=== PATIENT | male | born 1965 | race American Indian/Alaskan Native ===

== ENCOUNTER 2018-07-26 11:02 | Observation (INO) | payer BC ==
[2018-07-19 09:26] LABS: Basophils # (Auto) 0.1 K/mm3 (0.0-0.1); Basophils % (Auto) 1.1 % (0.0-1.8); Eosinophils # (Auto) 0.4 K/mm3 (0.0-0.4); Eosinophils % (Auto) 7.7 % (0.0-4.3); Hematocrit 38.6 % (35.5-45.6); Hemoglobin 13.3 gm/dl (11.8-15.2); Lymphocytes # (Auto) 1.8 K/mm3 (1.2-5.4); Lymphocytes % (Auto) 30.8 % (13.4-35.0); Mean Corpuscular HGB Conc 35 % (32-34); Mean Corpuscular Hemoglobin 30 pg (28-32); Mean Corpuscular Volume 87 fl (84-94); Monocytes # (Auto) 0.4 K/mm3 (0.0-0.8); Monocytes % (Auto) 6.6 % (0.0-7.3); Platelet Count 285 K/mm3 (140-440); Red Blood Count 4.42 M/mm3 (3.65-5.03); Red Cell Distribution Width 13.2 % (13.2-15.2)
[2018-07-19 09:41] LABS: INR 0.91 (0.87-1.13)
[2018-07-19 09:42] LABS: Alanine Aminotransferase 28 units/L (7-56); Albumin 4.5 g/dL (3.9-5); BUN/Creatinine Ratio 18; Blood Urea Nitrogen 14 mg/dL (9-20); Calcium 9.4 mg/dL (8.4-10.2); Hemolysis Index 6; Partial Thromboplastin Time 26.9 Sec. (24.2-36.6)
--- NOTE | 2018-07-19 14:04 | Anesthesia Consultation ---
Anesthesia Consult and Med Hx Date of service: 07/19/18 - Airway Anesthetic Teeth Evaluation: Good ROM Head & Neck: Adequate Mental/Hyoid Distance: Adequate Mallampati Class: Class II Intubation Access Assessment: Probably Good - Pulmonary Exam CTA: Yes - Cardiac Exam Cardiac Exam: RRR - Pre-Operative Health Status ASA Pre-Surgery Classification: ASA3 Proposed Anesthetic Plan: General (Ga with LMA ok, Pt has PONV, GERD will give pepcid morning of procedure) - Pulmonary Hx Smoking: No Hx Asthma: Yes (INHALER PRN) Hx Sleep Apnea: Yes (DX SLEEP APNEA , NO CPAP USE) - Cardiovascular System Hx Hypertension: Yes (X 5 YRS)
[~2018-07-26 11:02] MED LIST: GARAMYCIN/NS 80 MG/100 ML 100 ML IV SCH; LACTATED RINGERS 1,000 ML IV SCH; PEPCID IV NR; VANCOMYCIN/NS 1 GM/250 ML 1 GM/250 ML BAG IV SCH; VERSED IV NR
[2018-07-26] MEDS ORDERED: DIPRIVAN 10 MG/ML IV ONE (11:55)
[2018-07-26] MEDS ORDERED: XYLOCAINE MPF 2% ONE (11:55)
[2018-07-26] MEDS ORDERED: DILAUDID ONE ×3 (11:57→17:30)
[2018-07-26] MEDS ORDERED: MARCAINE 0.25% INFILTRATI ONE (12:49)
[2018-07-26] MEDS ORDERED: NEOSPORIN GU IR ONE ×2 (12:50→13:20)
[2018-07-26] MEDS ORDERED: NACL 0.9% IR ONE (13:20)
[2018-07-26] MEDS ORDERED: DECADRON ONE (13:38)
[2018-07-26] MEDS ORDERED: ZOFRAN ONE ×2 (14:49→15:28)
[2018-07-26] MEDS ORDERED: NARCAN 0.4 MG/1 ML IV PRN (14:55)
[2018-07-26] MEDS ORDERED: ZOFRAN IV PRN ×2 (14:55→16:34)
[2018-07-26] MEDS ORDERED: MORPHINE IV PRN (14:55)
[2018-07-26] MEDS ORDERED: NORCO 5/325 PO PRN (14:55)
--- NOTE | 2018-07-26 14:55 | Short Stay Summary ---
Short Stay Documentation Date of service: 07/26/18 - History H&P: obtained from office - Allergies and Medications Current Medications: Allergies hydrocodone Adverse Reaction (Verified 07/26/18 11:58) HALLUCINATIONS Home Medications Medication Instructions Recorded Confirmed Last Taken Type ALBUTEROL Inhaler(NF) [VENTOLIN 1 puff IH PRN PRN 07/10/18 07/26/18 07/19/18 History Inhaler(NF)] amLODIPine [Norvasc] 5 mg PO DAILY 07/10/18 07/26/18 07/26/18 07:00 History Sulfamethoxazole/Trimethoprim 1 each PO BID 07/26/18 07/26/18 07/26/18 07:00 History [Bactrim DS TAB] Active Medications Famotidine (Pepcid) 20 mg IV PREOP NR Stop: 07/26/18 23:59 Last Admin: 07/26/18 12:34 Dose: 20 mg Lactated Ringer's (Lactated Ringers) 1,000 mls @ 100 mls/hr IV DIRECT RE Last Admin: 07/26/18 12:20 Dose: 100 mls/hr Gentamicin Sulfate/Sodium Chloride (Garamycin/Ns 80 Mg/100 Ml) 100 mls @ 200 mls/hr IV PREOP RE Vancomycin HCl (Vancomycin/Ns 1 Gm/250 Ml) 1 gm in 250 mls @ 166.667 mls/hr IV PREOP RE Last Admin: 07/26/18 12:36 Dose: 166.667 mls/hr Midazolam HCl (Versed) 2 mg IV PREOP NR Stop: 07/26/18 23:59 Last Admin: 07/26/18 12:41 Dose: 2 mg - Brief post op/procedure progress note Date of procedure: 07/26/18 Pre-op diagnosis: impotence Post-op diagnosis: other Procedure: ipp (21cm + 4cm RTE), intracorporal pharmacologic injection, scrotoplasty Anesthesia: GETA Surgeon: DANO DIMAS [facility] Program Director: WOODROW BURK Estimated blood loss: minimal Pathology: list (scrotal skin) Specimen disposition: to lab Condition: stable - Hospital course Hospital course: pt has bactrim & norco - Disposition Condition at discharge: Stable Disposition: DC-01 TO HOME OR SELFCARE Short Stay Discharge Plan Follow up with: DEIDRA ARCE MD [Primary Care Provider] - 7 Days
[2018-07-26] MEDS ORDERED: PROAIR IH PRN (14:58)
[2018-07-26] MEDS ORDERED: LACTATED RINGERS 1,000 ML IV SCH (15:00)
[2018-07-26] MEDS: DILAUDID IV PRN ×3 (15:30→20:38)
[2018-07-26] MEDS ORDERED: BENADRYL ONE (16:03)
[2018-07-26] MEDS ORDERED: LACTATED RINGERS 1,000 ML ONE (16:05)
--- NOTE | 2018-07-26 16:34 | Anesthesia Day of Surgery ---
Anesthesia Day of Surgery - Day of Surgery Patient Examined: Yes Patient H&P Reviewed: Yes Patient is NPO: Yes
--- NOTE | 2018-07-26 16:34 | Post Anesthesia Evaluation ---
- Post Anesthesia Evaluation Patient Participated: Yes Airway Patent: Yes Stable Respiratory Function: Yes Nausea/Vomiting: No Temp > 96.8F: Yes Pain Manageable: Yes Adequeate Hydration: Yes Anesthesia Complications: No
[2018-07-26] MEDS ORDERED: BENADRYL IV ONE (17:42)
--- NOTE | 2018-07-26 18:30 | Operative Report ---
PREOPERATIVE DIAGNOSIS: Erectile dysfunction. POSTOPERATIVE DIAGNOSES: Erectile dysfunction, redundant scrotal skin. 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 2.Intracorporal penile injection of pharmacologic agent. 3.Scrotoplasty. SURGEON: Braxton Chaudhari MD RECRUITER: Zelalem Rockwell. ANESTHESIA: General. ESTIMATED BLOOD LOSS: Minimal. FLUIDS: Crystalloid. COMPLICATIONS: No complications. INDICATIONS: This 53-year-old gentleman seen in my office for erectile dysfunction. Actually, he had a prostate biopsy in 2016 for PSA of [address] Joseph. He was found to have [place] 9 adenocarcinoma of the prostate. He underwent robotic prostatectomy at [place] (Dr. Gregory on 01/2017). His protocol at [facility] required 2 years of hormone therapy. 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 He finished in 12/2017. Continues to have some mild stress incontinence appeared to be controlled and refractory erectile dysfunction to medical management. Discussed options. He agreed to proceed with surgical intervention. DESCRIPTION OF PROCEDURE: The patient was taken to the operative suite, placed in a supine position. After adequate general anesthesia, prepped and draped in a sterile fashion. [place] catheter was placed on the operative field. Injection of 0.25% Marcaine was performed, total of 30 mL. No plaque or curvature could be appreciated. A transscrotal incision was made with the Bovie. Sharp dissection was taken out to the corporal bodies. Metal [place] retractor was used for exposure. 2-0 Vicryl stay sutures were placed into the corporal bodies. Corporotomies were performed bilaterally with the Bovie. Gentle dilatation was performed with 7-8 mm sounds; however, it was a bit snug at the proximal aspect and it was dilated then up to 12 mm with sounds. Measurements revealed a total of 25 cm bilaterally and therefore 21 cm CX device with 4 cm rear tip extenders were used to allow the best rigidity. 100 mL Conceal reservoir was placed in the retropubic space via the right external ring, 100 mL saline was placed with minimal back pressure. The device was placed in the corporal bodies with the aid of a Spencer needle. Corporotomies were closed with 2-0 Vicryl in a running fashion bilaterally. Insufflation performed with adequate erection. Measurement from the pubic symphysis to the tip of the penis was 15 cm before and after placement of the device. Throughout the procedure, copious irrigation was performed. Adequate hemostasis achieved. The pump was connected to the reservoir with the quick click connection system and cycling again revealed an excellent erection. [place] layer was then closed with 2-0 Vicryl in a running fashion. Pursestring suture was used to secure this pump in the dependent portion of the scrotum. Redundant scrotal skin and dog ears were trimmed, sent for routine pathologic evaluation. Skin was closed with 3-0 Vicryl in interrupted fashion. Collodion was placed, Xeroform gauze as well as a mummy wrap. He was extubated and taken to the recovery room in stable condition. JOB# [id number] KAYE/EMMETT
[2018-07-26] MEDS: ANCEF/NS 1 GM/50 ML 1 GM/50 ML BAG IV SCH ×2 (23:48)
[2018-07-27] MEDS: DILAUDID IV PRN (04:34)
--- NOTE | 2018-07-27 06:09 | Consultation ---
History of Present Illness - Reason for Consult Consult date: 07/26/18 Medical management Requesting physician: DANO DIMAS - History of Present Illness S/p IPP-post op doing well Past History Past Medical History: hypertension, other (Asthma) Past Surgical History: Other (IPP) Social history: no significant social history, lives with family, full code Family history: hypertension Medications and Allergies Allergies Allergy/AdvReac Type Severity Reaction Status Date / Time hydrocodone AdvReac HALLUCINATI Verified 07/26/18 11:58 ONS Home Medications Medication Instructions Recorded Confirmed Last Taken Type ALBUTEROL Inhaler(NF) [VENTOLIN 1 puff IH PRN PRN 07/10/18 07/26/18 07/19/18 History Inhaler(NF)] amLODIPine [Norvasc] 5 mg PO DAILY 07/10/18 07/26/18 07/26/18 07:00 History Sulfamethoxazole/Trimethoprim 1 each PO BID 07/26/18 07/26/18 07/26/18 07:00 History [Bactrim DS TAB] Active Meds: Active Medications Acetaminophen/Hydrocodone Bitart ([place] 5/325) 2 each PO Q6H PRN PRN Reason: Pain, Moderate (4-6) Albuterol (Proair) 1 puff IH PRN PRN PRN Reason: Shortness Of Breath Amlodipine Besylate (Norvasc) 5 mg PO DAILY RE Gentamicin Sulfate/Sodium Chloride (Garamycin/Ns 80 Mg/100 Ml) 100 mls @ 200 mls/hr IV PREOP RE Vancomycin HCl (Vancomycin/Ns 1 Gm/250 Ml) 1 gm in 250 mls @ 166.667 mls/hr IV PREOP RE Last Admin: 07/26/18 12:36 Dose: 166.667 mls/hr Lactated Ringer's (Lactated Ringers) 1,000 mls @ 125 mls/hr IV DIRECT RE Last Admin: 07/26/18 23:49 Dose: 125 mls/hr Morphine Sulfate (Morphine) 4 mg IV Q4H PRN PRN Reason: Pain , Severe (7-10) Naloxone HCl (Narcan 0.4 Mg/1 Ml) 0.1 mg IV Q2MIN PRN PRN Reason: Res Rate </= 8 or 02 SAT < 92% Ondansetron HCl (Zofran) 4 mg IV Q8H PRN PRN Reason: N/V unrelieved by Julien Last Admin: 07/26/18 15:27 Dose: 4 mg Ondansetron HCl (Zofran) 4 mg IV ONCE PRN PRN Reason: Nausea And Vomiting Review of Systems All systems: negative Exam - Constitutional Vitals: Temp Pulse Resp BP Pulse Ox 98.3 F 67 17 128/70 99 07/27/18 04:21 07/27/18 04:21 07/27/18 04:34 07/27/18 04:21 07/27/18 04:21 General appearance: Present: no acute distress, well-nourished - EENT Eyes: Present: PERRL ENT: hearing intact, clear oral mucosa - Neck Neck: Present: supple, normal ROM - Respiratory Respiratory effort: normal Respiratory: bilateral: CTA - Cardiovascular Heart rate: 80 Rhythm: regular Heart Sounds: Present: S1 & S2. Absent: rub, click - Extremities Extremities: no ischemia, pulses intact, pulses symmetrical, No edema Peripheral Pulses: within normal limits - Abdominal General gastrointestinal: Present: soft, non-tender, non-distended, normal bowel sounds Male genitourinary: Present: normal - Rectal Rectal Exam: deferred - Integumentary Integumentary: Present: clear, warm, dry - Musculoskeletal Musculoskeletal: gait normal, strength equal bilaterally - Psychiatric Psychiatric: appropriate mood/affect, intact judgment & insight - Neurologic Neurologic: CNII-XII intact, moves all extremities Results - Labs CBC & Chem 7: 07/19/18 09:00 07/19/18 09:00 Assessment and Plan - Patient Problems (1) HTN (hypertension) Current Visit: Yes Status: Chronic Qualifiers: Hypertension type: essential hypertension Qualified Code(s): I10 - Essential (primary) hypertension Plan to address problem: Cont antihypertensives (2) Status post surgery Current Visit: Yes Status: Acute Plan to address problem: Post op doing well (3) Asthma Current Visit: Yes Status: Inactive Qualifiers: Asthma complication type: unspecified Plan to address problem: Bronchodilators Prn (4) DVT prophylaxis Current Visit: Yes Status: Acute Plan to address problem: SCD's only
[2018-07-27] MEDS ORDERED: NORVASC PO SCH (10:00)
[2018-07-27 11:21] VITALS: BP 114/63
--- NOTE | 2018-07-27 12:22 | Progress Note ---
Subjective Date of service: 07/27/18 Objective - Constitutional Vitals: Vital Signs - 12hr 07/27/18 07/27/18 07/27/18 00:23 04:21 04:29 Temperature 98.3 F Pulse Rate 69 67 97 H Respiratory 17 Rate Blood Pressure 128/70 O2 Sat by Pulse 97 99 99 Oximetry 07/27/18 07/27/18 07/27/18 04:34 04:36 08:14 Temperature 98.6 F 97.8 F Pulse Rate 85 63 Respiratory 17 20 18 Rate Blood Pressure 146/87 114/63 O2 Sat by Pulse 97 97 Oximetry - Labs CBC & Chem 7: 07/19/18 09:00 07/19/18 09:00
== END 2018-07-27 11:51 | disposition home or self-care (01) ==
LOC: OR 11:02 → 3B-SURG 14:55
PROVIDERS: ADMIT Urology; ATTEND Urology
DX: N52.9 Male erectile dysfunction, unspecified (principal); N50.89 Other specified disorders of the male genital organs; R79.1 Abnormal coagulation profile
CPT/HCPCS: 36415; 54401; 55175; 80053; 85025; 85610; 85730; 88302; 96365; 96367; 96375; 96376; C1813; G0378; J0690; J1100; J1170; J1200; J1580; J2250; J2270; J2405; J2704; J3370; J7120; 88305